=== PATIENT | female | born 1985 | race Caucasian/White ===

== ENCOUNTER 2018-01-25 12:00 | Emergency (ER) | payer OTHER ==
[~2018-01-25] VITALS: Ht 162.5 cm; Wt 101.2 kg
[~2018-01-25 12:00] MED LIST: ALENDRONATE SOD70 M1 PO; ANAPROX DS550 MG PO; CELLCEPT500 MG PO; CIPRO250 MG PO; CIPRO500 MG PO; IRON325 M1 PO; KEFLEX500 M1 PO; KEFLEX500 MG PO; KLOR-CON20 MEQ PO; LEVOTHYROXINE0.05 MG PO; MOTRIN800 MG PO; NADOLOL40 MG PO; NIFEREX-150150 MG PO; PHENERGAN12.5 M1 PO; POTASSIUM PO; PREDNISONE PO; PREDNISONE20 MG PO; PREDNISONE5 M1 PO; PREDNISONE5 MG PO; PROGRAF PO; PROGRAF1 MG PO; PROGRAF5 MG PO; SKELAXIN800 MG PO; SMZ-TMP 800 MG-1 TA2 PO; VITAMIN A; VITAMIN D PO; ZOFRAN ODT8 MG PO; [UNRECOGNIZED DRUG - CODE] PO
[2018-01-25 12:01] VITALS: BP 140/58
[2018-01-25] MEDS ORDERED: CELLCEPT500 MG PO (12:13)
[2018-01-25] MEDS ORDERED: KLOR-CON M2020 ME1 PO (12:13)
[2018-01-25] MEDS ORDERED: VITAMIN D-32000 UNI1 PO (12:14)
[2018-01-25] MEDS ORDERED: SPIRONOLACTONE50 M1 PO (12:14)
[2018-01-25] MEDS ORDERED: [UNRECOGNIZED DRUG - CODE] PO (12:15)
[2018-01-25] MEDS ORDERED: PREDNISONE5 MG PO (12:16)
[2018-01-25] MEDS ORDERED: NOVAPLUS TACROLI1 MG PO (12:16)
[2018-01-25] MEDS ORDERED: ALENDRONATE SOD70 M1 PO (12:16)
[2018-01-25] MEDS ORDERED: FUROSEMIDE20 M1 PO (12:17)
[2018-01-25] MEDS ORDERED: LEVOTHYROXINE50 MCG PO (12:17)
[2018-01-25] MEDS ORDERED: CARVEDILOL6.25 MG PO (12:17)
[2018-01-25] MEDS ORDERED: VIBRAMYCIN100 MG PO (12:24)
== END 2018-01-25 13:12 | disposition home or self-care (01) ==
LOC: ED 12:00
DX: L08.9 Local infection of the skin and subcutaneous tissue, unspecified (principal); Z79.899 Other long term (current) drug therapy

== ENCOUNTER 2021-01-05 11:21 | Inpatient (IN) | payer OTHER ==
[~2021-01-05] VITALS: Ht 162.5 cm; Wt 105.9 kg
[~2021-01-05 11:21] MED LIST changes: +CARVEDILOL6.25 MG PO; +FUROSEMIDE20 M1 PO; +KLOR-CON M2020 ME1 PO; +LEVOTHYROXINE50 MCG PO; +NOVAPLUS TACROLI1 MG PO; +SPIRONOLACTONE50 M1 PO; +VIBRAMYCIN100 MG PO; +VITAMIN D-32000 UNI1 PO; +[UNRECOGNIZED DRUG - CODE] PO
[2021-01-05 12:14] LABS: HEMATOCRIT 40.3 % (37.0-47.0); MEAN CELL VOLUME 94.4 fl (81.0-99.0); MEAN CORPUSCULAR HGB 32.1 pg (27.0-31.0); PLATELET COUNT AUTOMATED 35 10*3/uL (130-400); RED BLOOD COUNT 4.27 10*6/uL (4.10-5.10); RED CELL DISTRI WIDTH 15.3 % (0-14.5); WHITE BLOOD COUNT 5.5 10*3/uL (4.8-10.8)
[2021-01-05 12:30] LABS: ALKALINE PHOSPHATASE 160 U/L (45-117); BUN 9 mg/dl (7-24); CHLORIDE 116 mmol/L (98-107); LIPASE 225 U/L (73-393); POTASSIUM 2.6 mmol/L (3.5-5.1); SGOT/AST 109 IU/L (3-35); SGPT/ALT 56 U/L (12-78); SODIUM 143 mmol/L (136-145); TOTAL PROTEIN 6.7 gm/dL (6.4-8.2)
[2021-01-05 12:32] LABS: TROPONIN I < 0.015 ng/ml (<0.045)
[2021-01-05 12:40] LABS: PLATELET SUFFICIENCY LOW (NORMAL); TOTAL CELLS COUNTED 100 #CELLS
[2021-01-05 12:46] LABS: ACT PARTIAL THROMBO TIME 30.9 SECONDS (20.0-32.1); INTERNATIONAL NORM RATIO 1.5 (2.0-3.5)
[2021-01-05 15:28] VITALS: BP 111/57
[2021-01-05 16:32] VITALS: BP 104/61
[2021-01-05 18:14] VITALS: BP 112/86
[2021-01-05] MEDS ORDERED: PROTONIX TR40 M1 PO (18:32)
[2021-01-05] MEDS ORDERED: LEVOTHYROXINE75 MCG PO (18:33)
[2021-01-06] VITALS (8 sets, daily range): BP systolic 94–127; BP diastolic 56–83
[2021-01-06 06:53] LABS: HEMATOCRIT 34.3 % (37.0-47.0); MEAN CELL VOLUME 95.8 fl (81.0-99.0); MEAN CORPUSCULAR HGB 32.1 pg (27.0-31.0); MEAN CORPUSCULAR HGB CONC 33.5 g/dl (33.0-37.0); RED BLOOD COUNT 3.58 10*6/uL (4.10-5.10); RED CELL DISTRI WIDTH 15.4 % (0-14.5); WHITE BLOOD COUNT 3.6 10*3/uL (4.8-10.8)
[2021-01-06 07:08] LABS: PLATELET COUNT AUTOMATED 23 10*3/uL (130-400)
[2021-01-06 07:23] LABS: TOTAL CELLS COUNTED 100 #CELLS
[2021-01-06 07:26] LABS: PLATELET SUFFICIENCY LOW (NORMAL)
[2021-01-06 07:31] LABS: ALBUMIN 1.8 gm/dl (3.1-4.5); BUN 13 mg/dl (7-24); CHLORIDE 119 mmol/L (98-107); CREATININE 1.15 mg/dL (0.55-1.02); LDH 438 U/L (84-246); POTASSIUM 3.2 mmol/L (3.5-5.1); SGOT/AST 79 IU/L (3-35); SGPT/ALT 49 U/L (12-78); SODIUM 143 mmol/L (136-145)
[2021-01-06 07:32] LABS: ALKALINE PHOSPHATASE 134 U/L (45-117)
[2021-01-07] VITALS: BP 147/97
[2021-01-07 08:00] VITALS: BP 113/68
[2021-01-07 09:30] LABS: HEMATOCRIT 37.2 % (37.0-47.0); MEAN CELL VOLUME 95.9 fl (81.0-99.0); MEAN CORPUSCULAR HGB CONC 33.3 g/dl (33.0-37.0); RED BLOOD COUNT 3.88 10*6/uL (4.10-5.10); RED CELL DISTRI WIDTH 15.9 % (0-14.5); WHITE BLOOD COUNT 7.8 10*3/uL (4.8-10.8)
[2021-01-07 09:31] LABS: PLATELET COUNT AUTOMATED 32 10*3/uL (130-400)
[2021-01-07 09:39] LABS: CREATININE 1.33 mg/dL (0.55-1.02); POTASSIUM 3.4 mmol/L (3.5-5.1)
[2021-01-07 10:22] LABS: ATYPICAL LYMPHS 1 % (0-0); PLATELET SUFFICIENCY LOW (NORMAL); ROULEAUX SLIGHT; TOTAL CELLS COUNTED 100 #CELLS
[2021-01-07 11:37] LABS: ARTERIAL BLOOD GAS PH 7.418 (7.35-7.45); ARTERIAL BLOOD GAS PO2 75.1 (80-90)
[2021-01-07 11:40] LABS: ABG BASE EXCESS -6.9 mmol/L (-2.0-2.0)
[2021-01-07 12:00] VITALS: BP 118/72
[2021-01-07 16:00] VITALS: BP 117/76
[2021-01-07 20:00] VITALS: BP 124/83
[2021-01-08] VITALS: BP 108/75
[2021-01-08 06:23] LABS: HEMATOCRIT 34.4 % (37.0-47.0); MEAN CELL VOLUME 96.1 fl (81.0-99.0); MEAN CORPUSCULAR HGB 31.8 pg (27.0-31.0); MEAN CORPUSCULAR HGB CONC 33.1 g/dl (33.0-37.0); PLATELET COUNT AUTOMATED 31 10*3/uL (130-400); RED BLOOD COUNT 3.58 10*6/uL (4.10-5.10); RED CELL DISTRI WIDTH 15.6 % (0-14.5); WHITE BLOOD COUNT 3.9 10*3/uL (4.8-10.8)
[2021-01-08 06:27] LABS: ALBUMIN 1.9 gm/dl (3.1-4.5); CREATININE 1.54 mg/dL (0.55-1.02); POTASSIUM 3.5 mmol/L (3.5-5.1); TOTAL PROTEIN 5.8 gm/dL (6.4-8.2)
[2021-01-08 07:27] LABS: PLATELET SUFFICIENCY LOW (NORMAL); TOTAL CELLS COUNTED 100 #CELLS
[2021-01-08 08:00] VITALS: BP 107/55
[2021-01-08 12:00] VITALS: BP 113/78
[2021-01-08 16:00] VITALS: BP 101/60
[2021-01-08 20:00] VITALS: BP 101/47
[2021-01-09] VITALS (7 sets, daily range): BP systolic 94–127; BP diastolic 50–77
[2021-01-09 06:53] LABS: ALBUMIN 1.7 gm/dl (3.1-4.5); CREATININE 1.29 mg/dL (0.55-1.02); POTASSIUM 3.3 mmol/L (3.5-5.1); TOTAL PROTEIN 5.2 gm/dL (6.4-8.2)
[2021-01-09 08:18] LABS: HEMATOCRIT 31.4 % (37.0-47.0); MEAN CELL VOLUME 94.3 fl (81.0-99.0); MEAN CORPUSCULAR HGB 31.8 pg (27.0-31.0); MEAN CORPUSCULAR HGB CONC 33.8 g/dl (33.0-37.0); RED BLOOD COUNT 3.33 10*6/uL (4.10-5.10); RED CELL DISTRI WIDTH 15.6 % (0-14.5); WHITE BLOOD COUNT 3.3 10*3/uL (4.8-10.8)
[2021-01-09 08:27] LABS: PLATELET COUNT AUTOMATED 19 10*3/uL (130-400)
[2021-01-09 09:01] LABS: OVALOCYTES MODERATE; PLATELET SUFFICIENCY LOW (NORMAL); SCHISTOCYTES FEW; TOTAL CELLS COUNTED 100 #CELLS
[2021-01-10] VITALS: BP 118/73
[2021-01-10 06:30] LABS: HEMATOCRIT 29.4 % (37.0-47.0); MEAN CELL VOLUME 93.9 fl (81.0-99.0); MEAN CORPUSCULAR HGB 31.9 pg (27.0-31.0); RED BLOOD COUNT 3.13 10*6/uL (4.10-5.10); RED CELL DISTRI WIDTH 15.5 % (0-14.5)
[2021-01-10 06:32] LABS: PLATELET COUNT AUTOMATED 22 10*3/uL (130-400)
[2021-01-10 07:00] LABS: ALBUMIN 1.7 gm/dl (3.1-4.5); BUN 17 mg/dl (7-24); CHLORIDE 115 mmol/L (98-107); LDH 302 U/L (84-246); SGOT/AST 98 IU/L (3-35); SODIUM 142 mmol/L (136-145)
[2021-01-10 07:02] LABS: ALKALINE PHOSPHATASE 126 U/L (45-117); CREATININE 1.18 mg/dL (0.55-1.02); SGPT/ALT 97 U/L (12-78)
[2021-01-10 07:20] LABS: PLATELET SUFFICIENCY LOW (NORMAL); TOTAL CELLS COUNTED 100 #CELLS
[2021-01-10 07:21] LABS: BURR CELLS FEW
[2021-01-10 08:00] VITALS: BP 115/60
[2021-01-10 12:00] VITALS: BP 112/70
[2021-01-10 16:00] VITALS: BP 109/66
[2021-01-10 20:00] VITALS: BP 107/68
[2021-01-10 23:46] VITALS: BP 104/68
[2021-01-11 07:01] LABS: HEMATOCRIT 31.5 % (37.0-47.0); MEAN CELL VOLUME 95.5 fl (81.0-99.0); MEAN CORPUSCULAR HGB 32.1 pg (27.0-31.0); MEAN CORPUSCULAR HGB CONC 33.7 g/dl (33.0-37.0); RED CELL DISTRI WIDTH 15.9 % (0-14.5); WHITE BLOOD COUNT 3.1 10*3/uL (4.8-10.8)
[2021-01-11 07:04] LABS: PLATELET COUNT AUTOMATED 20 10*3/uL (130-400)
[2021-01-11 07:21] LABS: ALBUMIN 1.8 gm/dl (3.1-4.5); BUN 16 mg/dl (7-24); CHLORIDE 114 mmol/L (98-107); POTASSIUM 3.8 mmol/L (3.5-5.1); SGOT/AST 99 IU/L (3-35); SGPT/ALT 119 U/L (12-78); SODIUM 140 mmol/L (136-145)
[2021-01-11 07:24] LABS: ALKALINE PHOSPHATASE 130 U/L (45-117); CREATININE 1.21 mg/dL (0.55-1.02); TOTAL PROTEIN 5.3 gm/dL (6.4-8.2)
[2021-01-11 07:49] LABS: TOTAL CELLS COUNTED 100 #CELLS
[2021-01-11 07:50] LABS: BURR CELLS FEW; PLATELET SUFFICIENCY LOW (NORMAL)
[2021-01-11 07:51] LABS: POLYCHROMASIA SLIGHT
[2021-01-11 08:00] VITALS: BP 109/72
[2021-01-11 16:00] VITALS: BP 119/72
[2021-01-11 20:00] VITALS: BP 121/69
[2021-01-12] VITALS (8 sets, daily range): BP systolic 112–129; BP diastolic 54–81
[2021-01-12 06:41] LABS: HEMATOCRIT 31.3 % (37.0-47.0); MEAN CELL VOLUME 95.1 fl (81.0-99.0); MEAN CORPUSCULAR HGB 32.2 pg (27.0-31.0); MEAN CORPUSCULAR HGB CONC 33.9 g/dl (33.0-37.0); RED BLOOD COUNT 3.29 10*6/uL (4.10-5.10); WHITE BLOOD COUNT 3.7 10*3/uL (4.8-10.8)
[2021-01-12 06:48] LABS: PLATELET COUNT AUTOMATED 19 10*3/uL (130-400)
[2021-01-12 06:51] LABS: ALBUMIN 1.8 gm/dl (3.1-4.5); CREATININE 1.26 mg/dL (0.55-1.02); POTASSIUM 3.9 mmol/L (3.5-5.1); TOTAL PROTEIN 5.3 gm/dL (6.4-8.2)
[2021-01-12 07:57] LABS: PLATELET SUFFICIENCY LOW (NORMAL); SCHISTOCYTES FEW; TOTAL CELLS COUNTED 100 #CELLS
== END 2021-01-12 17:30 | disposition home or self-care (01) | DRG 137 ==
LOC: ED 11:21 → EDHOLD 13:40 → 4E 13:41 → EDHOLD 13:41 → ED 13:41 → EDHOLD 13:43 → 4E 16:59 → EDHOLD 16:59 → 4E 16:59 → EDHOLD 01-12 17:30
PROVIDERS: Emergency Medicine; Internal Medicine Critical Care Medicine; ADMIT Internal Medicine; ATTEND Internal Medicine
PROC: XW033E5 Introduction of Remdesivir Anti-infective into Peripheral Vein, Percutaneous Approach, New Technology Group 5 (ICD-10-PCS; principal; 2021-01-06)
PROC: 30233R1 Transfusion of Nonautologous Platelets into Peripheral Vein, Percutaneous Approach (ICD-10-PCS; 2021-01-09)
DX: U07.1 COVID-19 (principal); K75.4 Autoimmune hepatitis; J96.01 Acute respiratory failure with hypoxia; J12.82 Pneumonia due to coronavirus disease 2019; R62.7 Adult failure to thrive; E03.9 Hypothyroidism, unspecified; D61.818 Other pancytopenia; E87.6 Hypokalemia; K72.90 Hepatic failure, unspecified without coma; E43 Unspecified severe protein-calorie malnutrition; E66.01 Morbid (severe) obesity due to excess calories; N17.9 Acute kidney failure, unspecified

== ENCOUNTER → 2021-02-26 | Outpatient (CLI) | payer OTHER ==
[~2021-02-26] MED LIST changes: +DELTASONE1 MG PO; +DICYCLOMINE HCL10 MG PO; +K-TAB10 MEQ PO; +LEVOTHYROXINE75 MCG PO; +MAGNESIUM OXID400 MG PO; +NATURE'S BLEND F1 MG PO; +PANTOPRAZOLE SO40 MG PO; +PROTONIX TR40 M1 PO; +SPIRONOLACTONE100 MG PO; +Synthroid,Lev100 MCG PO
== END | disposition home or self-care (01) ==
LOC: LAB 10:03
PROVIDERS: ATTEND Internal Medicine
DX: N39.0 Urinary tract infection, site not specified (principal)

== ENCOUNTER 2021-05-06 19:52 | Inpatient (IN) | payer OTHER ==
[~2021-05-06] VITALS: Ht 162.6 cm; Wt 108.2 kg
[2021-05-06 20:04] VITALS: BP 124/85
[2021-05-06] MEDS ORDERED: COREG6.25 MG PO (20:06)
[2021-05-06] MEDS ORDERED: LASIX20 MG PO (20:06)
[2021-05-06] MEDS ORDERED: MYCOPHENOLATE500 MG PO (20:07)
[2021-05-06 20:45] LABS: HEMATOCRIT 32.3 % (37.0-47.0); MEAN CELL VOLUME 92.6 fl (81.0-99.0); MEAN CORPUSCULAR HGB 31.5 pg (27.0-31.0); MEAN CORPUSCULAR HGB CONC 34.1 g/dl (33.0-37.0); RED BLOOD COUNT 3.49 10*6/uL (4.10-5.10); RED CELL DISTRI WIDTH 18.2 % (0-14.5); WHITE BLOOD COUNT 4.1 10*3/uL (4.8-10.8)
[2021-05-06 20:53] LABS: INTERNATIONAL NORM RATIO 1.5 (2.0-3.5)
[2021-05-06 20:56] LABS: PLATELET COUNT AUTOMATED 27 10*3/uL (130-400)
[2021-05-06 20:58] LABS: BILIRUBIN Negative (Negative); BLOOD Negative (Negative); CLARITY Clear (Clear); COLOR Yellow (Yellow); GLUCOSE Negative (Negative); KETONE Negative (Negative); LEUKO ESTERASE 3+ (Negative); NITRITE Negative (Negative); SPECIFIC GRAVITY <= 1.005 (1.001-1.030)
[2021-05-06 20:59] LABS: ALBUMIN 2.1 gm/dl (3.1-4.5); ALKALINE PHOSPHATASE 106 U/L (45-117); BUN 8 mg/dl (7-24); CHLORIDE 117 mmol/L (98-107); CREATININE 1.11 mg/dL (0.55-1.02); POTASSIUM 2.7 mmol/L (3.5-5.1); SGOT/AST 51 IU/L (3-35); SGPT/ALT 26 U/L (12-78); SODIUM 145 mmol/L (136-145); TOTAL PROTEIN 5.1 gm/dL (6.4-8.2)
[2021-05-06 21:05] LABS: ATYPICAL LYMPHS 3 % (0-0); PLATELET SUFFICIENCY LOW (NORMAL); TOTAL CELLS COUNTED 100 #CELLS
[2021-05-06 21:06] LABS: OVALOCYTES FEW
[2021-05-06 21:08] LABS: EPITHELIAL CELLS 0-2; WBC 16-20 wbc/hpf (0-5)
[2021-05-06 21:51] VITALS: BP 90/43
[2021-05-06 22:35] VITALS: BP 107/74
[2021-05-06 22:49] VITALS: BP 99/49
[2021-05-06 23:30] VITALS: BP 99/49
[2021-05-07] VITALS (8 sets, daily range): BP systolic 111–129; BP diastolic 49–86
[2021-05-07] MEDS ORDERED: LEVOTHYROXINE75 MCG PO (00:20)
[2021-05-07] MEDS ORDERED: NOVAPLUS TACROLI1 MG PO (00:22)
[2021-05-07 06:16] LABS: BUN 7 mg/dl (7-24); CHLORIDE 119 mmol/L (98-107); CREATININE 0.94 mg/dL (0.55-1.02); POTASSIUM 2.9 mmol/L (3.5-5.1); SODIUM 147 mmol/L (136-145)
[2021-05-07 09:23] LABS: BUN 7 mg/dl (7-24); CHLORIDE 118 mmol/L (98-107); POTASSIUM 2.9 mmol/L (3.5-5.1); SODIUM 145 mmol/L (136-145)
[2021-05-08 00:10] VITALS: BP 109/69
[2021-05-08 00:25] VITALS: BP 117/68
[2021-05-08 00:55] VITALS: BP 124/74
[2021-05-08 06:31] LABS: HEMATOCRIT 28.4 % (37.0-47.0); MEAN CORPUSCULAR HGB 32.1 pg (27.0-31.0); MEAN CORPUSCULAR HGB CONC 33.8 g/dl (33.0-37.0); MEAN PLATELET VOLUME 13.1 fl (9.6-12.3); PLATELET COUNT AUTOMATED 34 10*3/uL (130-400); RED BLOOD COUNT 2.99 10*6/uL (4.10-5.10); WHITE BLOOD COUNT 3.9 10*3/uL (4.8-10.8)
[2021-05-08 06:41] LABS: BUN 7 mg/dl (7-24); CHLORIDE 116 mmol/L (98-107); CREATININE 1.13 mg/dL (0.55-1.02); SODIUM 145 mmol/L (136-145)
[2021-05-08 07:41] LABS: ATYPICAL LYMPHS 1 % (0-0); BASOPHILS 2 % (0-1); OVALOCYTES MODERATE; PLATELET SUFFICIENCY LOW (NORMAL); TOTAL CELLS COUNTED 100 #CELLS
[2021-05-08 08:00] VITALS: BP 129/84
[2021-05-08] MEDS ORDERED: POTASSIUM CHLO20 ME3 PO (11:39)
[2021-05-08] MEDS ORDERED: BUMETANIDE1 MG PO (11:39)
== END 2021-05-08 13:08 | disposition home or self-care (01) ==
LOC: ED 19:52 → 4E 21:54 → EDHOLD 21:54 → 4E 22:45
PROVIDERS: Emergency Medicine; ADMIT Internal Medicine; ATTEND Internal Medicine
PROC: 30233R1 Transfusion of Nonautologous Platelets into Peripheral Vein, Percutaneous Approach (ICD-10-PCS; principal; 2021-05-07)
DX: R18.8 Other ascites (principal); K75.4 Autoimmune hepatitis; K74.60 Unspecified cirrhosis of liver; E87.6 Hypokalemia; D69.6 Thrombocytopenia, unspecified; K76.6 Portal hypertension; E43 Unspecified severe protein-calorie malnutrition; E03.9 Hypothyroidism, unspecified; R62.7 Adult failure to thrive; E83.42 Hypomagnesemia

== ENCOUNTER 2021-07-06 11:21 | Inpatient (IN) | payer OTHER ==
[~2021-07-06] VITALS: Ht 162.5 cm; Wt 100.8 kg
[~2021-07-06 11:21] MED LIST changes: +BUMETANIDE1 MG PO; +COREG6.25 MG PO; +LASIX20 MG PO; +MYCOPHENOLATE500 MG PO; +POTASSIUM CHLO20 ME3 PO
[2021-07-06 11:45] VITALS: BP 132/85
[2021-07-06 12:32] LABS: HEMATOCRIT 35.3 % (37.0-47.0); MANUAL DIFF REFLEX YES; MEAN CELL VOLUME 94.1 fl (81.0-99.0); MEAN CORPUSCULAR HGB 30.9 pg (27.0-31.0); MEAN CORPUSCULAR HGB CONC 32.9 g/dl (33.0-37.0); PLATELET COUNT AUTOMATED 32 10*3/uL (130-400); RED BLOOD COUNT 3.75 10*6/uL (4.10-5.10); RED CELL DISTRI WIDTH 16.6 % (0-14.5); WHITE BLOOD COUNT 4.1 10*3/uL (4.8-10.8)
[2021-07-06 12:41] LABS: ACT PARTIAL THROMBO TIME 29.2 SECONDS (20.0-32.1); INTERNATIONAL NORM RATIO 1.5 (2.0-3.5)
[2021-07-06 12:52] LABS: BASOPHILS 1 % (0-1); OVALOCYTES MODERATE; PLATELET SUFFICIENCY LOW (NORMAL); SCHISTOCYTES FEW; TOTAL CELLS COUNTED 100 #CELLS
[2021-07-06 12:56] LABS: ALKALINE PHOSPHATASE 117 U/L (45-117); BUN 8 mg/dl (7-24); CHLORIDE 115 mmol/L (98-107); CREATININE 1.08 mg/dL (0.55-1.02); LIPASE 179 U/L (73-393); POTASSIUM 2.9 mmol/L (3.5-5.1); SGOT/AST 60 IU/L (3-35); SGPT/ALT 28 U/L (12-78); SODIUM 145 mmol/L (136-145); TOTAL PROTEIN 5.8 gm/dL (6.4-8.2)
[2021-07-06 13:39] LABS: BILIRUBIN Negative (Negative); BLOOD Trace-Lysed (Negative); CLARITY Clear (Clear); COLOR Yellow (Yellow); GLUCOSE Negative (Negative); KETONE Negative (Negative); LEUKO ESTERASE 3+ (Negative); NITRITE Negative (Negative); SPECIFIC GRAVITY <= 1.005 (1.001-1.030)
[2021-07-06 13:47] LABS: BACTERIA 2+; WBC TNTC wbc/hpf (0-5)
[2021-07-06] MEDS ORDERED: LASIX20 MG PO (14:18)
[2021-07-06] MEDS ORDERED: MAGNESIUM400 MG PO (14:19)
[2021-07-06 14:55] VITALS: BP 134/78
[2021-07-06 15:39] VITALS: BP 117/70
[2021-07-06 20:00] VITALS: BP 124/77
[2021-07-07] VITALS: BP 118/68
[2021-07-07 06:32] LABS: HEMATOCRIT 29.4 % (37.0-47.0); MEAN CELL VOLUME 94.2 fl (81.0-99.0); MEAN CORPUSCULAR HGB 31.1 pg (27.0-31.0); RED BLOOD COUNT 3.12 10*6/uL (4.10-5.10); RED CELL DISTRI WIDTH 16.8 % (0-14.5); WHITE BLOOD COUNT 2.5 10*3/uL (4.8-10.8)
[2021-07-07 06:35] LABS: MANUAL DIFF REFLEX YES
[2021-07-07 06:37] LABS: PLATELET COUNT AUTOMATED 25 10*3/uL (130-400)
[2021-07-07 06:51] LABS: BUN 8 mg/dl (7-24); CHLORIDE 116 mmol/L (98-107); CREATININE 0.98 mg/dL (0.55-1.02); POTASSIUM 2.7 mmol/L (3.5-5.1); SODIUM 144 mmol/L (136-145)
[2021-07-07 07:04] LABS: ACANTHOCYTES FEW; BASOPHILS 1 % (0-1); PLATELET SUFFICIENCY LOW (NORMAL); POLYCHROMASIA SLIGHT; SCHISTOCYTES FEW; TOTAL CELLS COUNTED 100 #CELLS
[2021-07-07 07:05] LABS: OVALOCYTES MODERATE
[2021-07-07 08:00] VITALS: BP 100/58
[2021-07-07 12:00] VITALS: BP 112/67
[2021-07-07 16:00] VITALS: BP 107/60
[2021-07-07 20:00] VITALS: BP 98/63
[2021-07-08] VITALS (21 sets, daily range): BP systolic 91–111; BP diastolic 52–66
[2021-07-08 06:32] LABS: HEMATOCRIT 28.3 % (37.0-47.0); MEAN CELL VOLUME 96.9 fl (81.0-99.0); MEAN CORPUSCULAR HGB 32.2 pg (27.0-31.0); MEAN CORPUSCULAR HGB CONC 33.2 g/dl (33.0-37.0); RED BLOOD COUNT 2.92 10*6/uL (4.10-5.10); RED CELL DISTRI WIDTH 16.4 % (0-14.5); WHITE BLOOD COUNT 2.8 10*3/uL (4.8-10.8)
[2021-07-08 06:41] LABS: PLATELET COUNT AUTOMATED 40 10*3/uL (130-400)
[2021-07-08 06:42] LABS: MANUAL DIFF REFLEX YES
[2021-07-08 07:37] LABS: BASOPHILS 3 % (0-1); OVALOCYTES FEW; PLATELET SUFFICIENCY LOW (NORMAL); POLYCHROMASIA SLIGHT; TOTAL CELLS COUNTED 100 #CELLS
[2021-07-08 07:38] LABS: ACANTHOCYTES FEW; ROULEAUX SLIGHT; SCHISTOCYTES FEW
[2021-07-08 15:02] LABS: HEMATOCRIT 28.6 % (37.0-47.0); MEAN CORPUSCULAR HGB 31.2 pg (27.0-31.0); MEAN CORPUSCULAR HGB CONC 32.9 g/dl (33.0-37.0); MEAN PLATELET VOLUME 12.8 fl (9.6-12.3); PLATELET COUNT AUTOMATED 45 10*3/uL (130-400); RED BLOOD COUNT 3.01 10*6/uL (4.10-5.10); RED CELL DISTRI WIDTH 16.6 % (0-14.5); WHITE BLOOD COUNT 2.4 10*3/uL (4.8-10.8)
[2021-07-08 15:04] LABS: MANUAL DIFF REFLEX YES
[2021-07-08 15:13] LABS: BUN 8 mg/dl (7-24); CHLORIDE 111 mmol/L (98-107); CREATININE 1.05 mg/dL (0.55-1.02); POTASSIUM 3.1 mmol/L (3.5-5.1); SODIUM 144 mmol/L (136-145)
[2021-07-08 15:24] LABS: BASOPHILS 1 % (0-1); PLATELET SUFFICIENCY LOW (NORMAL); POLYCHROMASIA SLIGHT; SCHISTOCYTES FEW; TOTAL CELLS COUNTED 100 #CELLS
[2021-07-08 15:25] LABS: OVALOCYTES MODERATE; ROULEAUX SLIGHT
[2021-07-09] VITALS: BP 102/54
[2021-07-09 06:59] LABS: BUN 10 mg/dl (7-24); CHLORIDE 111 mmol/L (98-107); POTASSIUM 3.8 mmol/L (3.5-5.1); SODIUM 141 mmol/L (136-145)
[2021-07-09 08:00] VITALS: BP 104/54
[2021-07-09] MEDS ORDERED: LASIX40 MG PO (08:39)
[2021-07-09] MEDS ORDERED: ALDACTONE50 M1 PO (08:39)
== END 2021-07-09 12:30 | disposition home or self-care (01) ==
LOC: ED 11:21 → 4E 13:59 → EDHOLD 13:59 → 4E 15:14
PROVIDERS: Physician Assistant; ADMIT Internal Medicine; ATTEND Internal Medicine
PROC: 30233R1 Transfusion of Nonautologous Platelets into Peripheral Vein, Percutaneous Approach (ICD-10-PCS; principal; 2021-07-08)
DX: K75.4 Autoimmune hepatitis (principal); K74.60 Unspecified cirrhosis of liver; E44.0 Moderate protein-calorie malnutrition; R18.8 Other ascites; E66.9 Obesity, unspecified; T38.0X5A Adverse effect of glucocorticoids and synthetic analogues, initial encounter; D84.9 Immunodeficiency, unspecified; E24.9 Cushing's syndrome, unspecified; D64.9 Anemia, unspecified; D69.6 Thrombocytopenia, unspecified; K75.81 Nonalcoholic steatohepatitis (NASH); E87.6 Hypokalemia; E03.9 Hypothyroidism, unspecified; Y92.89 Other specified places as the place of occurrence of the external cause; Z68.41 Body mass index [BMI] 40.0-44.9, adult

== ENCOUNTER → 2021-07-13 | Outpatient (CLI) | payer OTHER ==
[~2021-07-13] MED LIST changes: +ALDACTONE50 M1 PO; +LASIX40 MG PO; +MAGNESIUM400 MG PO
[2021-07-13 09:54] LABS: HEMATOCRIT 37.4 % (37.0-47.0); MEAN CELL VOLUME 94.2 fl (81.0-99.0); MEAN CORPUSCULAR HGB CONC 32.9 g/dl (33.0-37.0); PLATELET COUNT AUTOMATED 36 10*3/uL (130-400); RED BLOOD COUNT 3.97 10*6/uL (4.10-5.10); RED CELL DISTRI WIDTH 16.9 % (0-14.5); WHITE BLOOD COUNT 3.9 10*3/uL (4.8-10.8)
[2021-07-13 10:05] LABS: MANUAL DIFF REFLEX YES
[2021-07-13 10:10] LABS: CHLORIDE 111 mmol/L (98-107); CREATININE 1.16 mg/dL (0.55-1.02); POTASSIUM 3.8 mmol/L (3.5-5.1); SODIUM 142 mmol/L (136-145)
[2021-07-13 10:11] LABS: BUN 9 mg/dl (7-24)
[2021-07-13 11:27] LABS: ATYPICAL LYMPHS 1 % (0-0); BASOPHILS 3 % (0-1); TOTAL CELLS COUNTED 100 #CELLS
[2021-07-13 11:28] LABS: ACANTHOCYTES FEW; OVALOCYTES FEW; PLATELET SUFFICIENCY LOW (NORMAL); POLYCHROMASIA SLIGHT; SCHISTOCYTES FEW
== END | disposition home or self-care (01) ==
LOC: LAB 09:35
PROVIDERS: ATTEND Internal Medicine
DX: K76.9 Liver disease, unspecified (principal)

== ENCOUNTER 2021-10-18 21:43 | Emergency (ER) | payer OTHER ==
[~2021-10-18] VITALS: Ht 162.5 cm; Wt 93.4 kg
[2021-10-18 21:54] VITALS: BP 113/65
== END 2021-10-18 22:44 | disposition short-term general hospital (02) ==
LOC: ED 21:43
DX: M79.89 Other specified soft tissue disorders (principal); Z79.899 Other long term (current) drug therapy

== ENCOUNTER 2021-10-19 08:51 | Emergency (ER) | payer OTHER ==
[~2021-10-19] VITALS: Ht 162.5 cm; Wt 95.3 kg
[2021-10-19 09:06] VITALS: BP 113/61
[2021-10-19 09:39] LABS: HEMATOCRIT 32.6 % (37.0-47.0); MEAN CELL VOLUME 98.2 fl (81.0-99.0); MEAN CORPUSCULAR HGB 32.8 pg (27.0-31.0); MEAN CORPUSCULAR HGB CONC 33.4 g/dl (33.0-37.0); RED BLOOD COUNT 3.32 10*6/uL (4.10-5.10); WHITE BLOOD COUNT 3.7 10*3/uL (4.8-10.8)
[2021-10-19 09:42] LABS: MANUAL DIFF REFLEX YES
[2021-10-19 09:51] LABS: ACT PARTIAL THROMBO TIME 38.1 SECONDS (20.0-32.1); INTERNATIONAL NORM RATIO 1.4 (2.0-3.5)
[2021-10-19 09:54] LABS: ALKALINE PHOSPHATASE 177 U/L (45-117); BUN 9 mg/dl (7-24); CHLORIDE 115 mmol/L (98-107); POTASSIUM 2.9 mmol/L (3.5-5.1); SGOT/AST 68 IU/L (3-35); SGPT/ALT 33 U/L (12-78); SODIUM 143 mmol/L (136-145); TOTAL PROTEIN 5.8 gm/dL (6.4-8.2)
[2021-10-19 10:02] LABS: PLATELET COUNT AUTOMATED 24 10*3/uL (130-400)
[2021-10-19 10:06] LABS: TOTAL CELLS COUNTED 100 #CELLS
[2021-10-19 10:07] LABS: OVALOCYTES FEW; PLATELET SUFFICIENCY LOW (NORMAL)
== END 2021-10-19 11:28 | disposition home or self-care (01) ==
LOC: ED 08:51
PROVIDERS: Emergency Medicine
DX: R18.8 Other ascites (principal); D61.818 Other pancytopenia; Z79.899 Other long term (current) drug therapy

== ENCOUNTER → 2021-12-18 | Outpatient (CLI) | payer OTHER | END | disposition home or self-care (01) | LOC: US 10:30 | PROVIDERS: ATTEND Internal Medicine | DX: N85.4 Malposition of uterus (principal); R10.2 Pelvic and perineal pain ==

== ENCOUNTER → 2022-03-16 | Outpatient (CLI) | payer OTHER | END | disposition home or self-care (01) | LOC: US 07:30 | PROVIDERS: ATTEND Internal Medicine | DX: E07.9 Disorder of thyroid, unspecified (principal) ==

== ENCOUNTER → 2022-12-24 | Outpatient (CLI) | payer OTHER ==
[~2022-12-24] MED LIST changes: +XIFAXAN550 MG PO
== END | disposition home or self-care (01) ==
LOC: LAB 08:59
PROVIDERS: ATTEND Nurse Practitioner Women's Health
DX: R23.2 Flushing (principal)

== ENCOUNTER → 2023-06-24 | Outpatient (CLI) | payer OTHER ==
[~2023-06-24] MED LIST changes: +MIRALAX119 GM PO; +TACROLIMUS1 M1 PO
[2023-06-24 08:36] LABS: HEMATOCRIT 30.5 % (37.0-47.0); MEAN CELL VOLUME 108.2 fl (81.0-99.0); MEAN CORPUSCULAR HGB 33.3 pg (27.0-31.0); MEAN CORPUSCULAR HGB CONC 30.8 g/dl (33.0-37.0); RED BLOOD COUNT 2.82 10*6/uL (4.10-5.10); RED CELL DISTRI WIDTH 22.8 % (0-14.5); WHITE BLOOD COUNT 2.2 10*3/uL (4.8-10.8)
[2023-06-24 08:58] LABS: PLATELET COUNT AUTOMATED 21 10*3/uL (130-400)
[2023-06-24 08:59] LABS: MANUAL DIFF REFLEX YES
[2023-06-24 09:03] LABS: BASOPHILS 1 % (0-1); TOTAL CELLS COUNTED 100 #CELLS
[2023-06-24 09:04] LABS: OVALOCYTES FEW; PLATELET SUFFICIENCY LOW (NORMAL)
[2023-06-24 09:06] LABS: POTASSIUM 3.4 mmol/L (3.4-5.1); TOTAL PROTEIN 6.4 gm/dL (6.0-8.0)
== END | disposition home or self-care (01) ==
LOC: LAB 08:13
DX: K75.4 Autoimmune hepatitis (principal); K74.69 Other cirrhosis of liver; Z76.82 Awaiting organ transplant status